=== PATIENT | female | born 1965 | race Caucasian/White ===

== ENCOUNTER → 2022-03-02 | Outpatient (CLI) | payer OTHER ==
[~2022-03-02] MED LIST: ALPRAZOLAM0.5 MG PO; ATENOLOL50 MG PO; DICYCLOMINE HCL10 MG PO; HYDROCODON-ACE1 EACH PO; HYDROXYCHLOROQ200 MG PO; LISINOPRIL20 MG PO; METHOTREXATE2.5 MG PO; OMEPRAZOLE40 MG PO; SIMVASTATIN40 MG PO
== END ==
LOC: MAMMO 12:19
PROVIDERS: ATTEND Internal Medicine
DX: Z12.31 Encounter for screening mammogram for malignant neoplasm of breast (principal); M85.88 Other specified disorders of bone density and structure, other site
CPT/HCPCS: 77067; 77080

== ENCOUNTER → 2022-11-24 | Outpatient (CLI) | payer OTHER | LOC: US 08:40 | PROVIDERS: ATTEND Internal Medicine | DX: R94.8 Abnormal results of function studies of other organs and systems (principal) | CPT/HCPCS: 76536 ==

== ENCOUNTER → 2024-03-31 | Outpatient (REF) | payer OTHER ==
[~2024-03-31] MED LIST changes: +IOPAMIDOL 370 MG/ML 100 ML INFUS..BTL INJ ONE
[2024-03-31 08:35] LABS: CREATININE, SERUM 0.78 mg/dL (0.57-1.11)
== END ==
LOC: CT 07:18
PROVIDERS: ATTEND Internal Medicine Cardiovascular Disease
DX: I73.9 Peripheral vascular disease, unspecified (principal)
CPT/HCPCS: 36415; 75635; 82565; 84520; Q9967